=== PATIENT | male | born 1960 | race Caucasian/White ===

== ENCOUNTER 2016-06-26 12:18 | Emergency (ER) | payer MEDICARE ==
[~2016-06-26] VITALS: Ht 175.3 cm; Wt 95.3 kg
[~2016-06-26 12:18] MED LIST: CYCLOBENZAPRINE10 MG PO; FENOFIBRIC ACI135 MG PO; GLUCOPHAGE500 M1 PO; HYDROCHLOROTHIA25 MG PO; LIPITOR20 MG PO; PRINIVIL20 MG PO; PROZAC20 MG PO
== END 2016-06-26 13:15 | disposition short-term general hospital (02) ==
LOC: ER 12:18
DX: S40.021A Contusion of right upper arm, initial encounter (principal); S46.001A Unspecified injury of muscle(s) and tendon(s) of the rotator cuff of right shoulder, initial encounter; X58.XXXA Exposure to other specified factors, initial encounter

== ENCOUNTER → 2016-07-09 | Outpatient (CLI) | payer MEDICARE | END | disposition short-term general hospital (02) | LOC: CLORTH 08:18 | DX: S46.011A Strain of muscle(s) and tendon(s) of the rotator cuff of right shoulder, initial encounter (principal); S46.111A Strain of muscle, fascia and tendon of long head of biceps, right arm, initial encounter; M19.011 Primary osteoarthritis, right shoulder ==